=== PATIENT | male | born 1960 | race Caucasian/White ===

== ENCOUNTER 2016-07-29 02:36 | Emergency (ER) | payer OTHER ==
[2016-07-29] MEDS ORDERED: SODIUM CHLORIDE 1,000 ML IV STA ×2 (02:39→03:03)
[2016-07-29] MEDS ORDERED: HYDROmorphone HCL CARPU-JECT 1 MG/1 ML DISP.SYRIN IVPUSH ONE ×3 (02:39→04:13)
--- NOTE | 2016-07-29 02:41 | PDOC ---
History of Present Illness - General Chief Complaint: Pain, Acute Stated Complaint: CHRONIC KIDNEY STONES Time Seen by Provider: 07/29/16 02:39 - History of Present Illness Initial Comments: This 55-year-old man with a long history of renal colic, hypertension, breast cancer presents with several hour history of progressive, severe right flank pain radiating to the right groin. Patient had mild to moderate right sided pain approximately 3 weeks ago and was seen by his urologist. At that time, CT was performed. This showed a 4 mm stone in the right renal pelvis/5 mm stone in the left renal pelvis. No ureteral stones were present. Pain was not particularly severe until tonight when he had onset of acute episode. Patient denies hematuria/dysuria/urinary frequency or urgency. He has had no nausea or vomiting. Past History - Past Medical History Allergies/Adverse Reactions: Allergies Allergy/AdvReac Type Severity Reaction Status Date / Time JIGAR Inhibitors Allergy Verified 07/29/16 02:38 Home Medications: Ambulatory Orders Oxycodone HCl/Acetaminophen [Percocet 5-325 mg Tablet -] 1 tab PO Q6H PRN #12 tablet 01/25/14 Oxycodone HCl/Acetaminophen [Percocet 5/325 -] 1 tab PO Q6H PRN #10 tablet 04/09 Oxycodone HCl/Acetaminophen [Percocet 5-325 mg Tablet] 1 tab PO Q6H PRN #10 tablet MDD 3 tabs 07/29/16 Cancer: Yes (BREAST) Kidney Stones: Yes Psychiatric Problems: Yes (ANXIETY,DEPRESSION) - Immunization History Immunization Up to Date: Yes - Psycho/Social/Smoking Cessation Hx Anxiety: No Suicidal Ideation: No Smoking History: Never smoked Review of Systems - Review of Systems Able to Perform ROS?: Yes Comments:: 12 point review of systems is negative except for what is noted in the history of present illness *Physical Exam - Physical Exam Comments: GENERAL:Adult man, in moderate distress secondary to right flank pain HEAD: Normal with no signs of trauma. EYES: PERRLA, EOMI, sclera anicteric, conjunctiva clear. ENT: Ears normal, nares patent, oropharynx clear without exudates. Dry mucous membranes. NECK: Normal range of motion, supple without lymphadenopathy, JVD, or masses. LUNGS: Breath sounds equal, clear to auscultation bilaterally. No wheezes, and no crackles. HEART:Regular rate and rhythm, normal S1 and S2 without murmur, rub or gallop. ABDOMEN:.normal bowel sounds ;mild right flank tenderness; no peritoneal signs EXTREMITIES: Normal range of motion, no edema. No clubbing or cyanosis. No erythema, or tenderness. NEUROLOGICAL: Cranial nerves II through XII grossly intact. Normal speech. No focal neurological deficits. SKIN: Warm, Dry, normal turgor, no rashes or lesions noted. Medical Decision Making - Medical Decision Making 07/29/16 03:58 Patient feels much improved after second liter of normal saline and second dose of 1 mg Dilaudid IV. Patient will be discharged with instructions to drink plenty of fluids and follow-up with his urologist within the next 48 hours (he will call later on this morning to arrange follow-up appointment). Prescription for Percocet 5/ 325 (#10) will be transmitted to his pharmacy to be used up to 3 tablets a day as needed for severe pain. Meanwhile, the patient return to the emergency room if he has persistent severe pain or vomiting. Patient is concerned that he will not be able to fill prescription for Percocet until pharmacy opens at 9 AM. Percocet 5/325, 2 tablets will be dispensed to the patient for use at home until this pharmacy opens in [facility]. *DC/Admit/Observation/Transfer Diagnosis at time of Disposition: Renal colic on right side - Discharge Dispostion Condition at time of disposition: Stable - Prescriptions Prescriptions: Oxycodone HCl/Acetaminophen [Percocet 5-325 mg Tablet] 1 tab PO Q6H PRN #10 tablet MDD 3 tabs PRN Reason: Severe Pain - Patient Instructions Printed Discharge Instructions: Kidney Stones -- Adult Additional Instructions: Drink plenty of fluids Percocet 5/325 up to 3 tabs a day as needed for flank pain
[2016-07-29 03:18] VITALS: TEMP 97.9; BMI 28.5
[2016-07-29 03:28] VITALS: PULSE 62
[2016-07-29] MEDS ORDERED: OXYCODONE/APAP 5/325MG COMBO TABLET ONE (03:56)
[2016-07-29 04:29] VITALS: BP 113/66
== END 2016-07-29 04:36 | disposition home or self-care (01) ==
LOC: FER 02:36
PROC: 3E033NZ Introduction of Analgesics, Hypnotics, Sedatives into Peripheral Vein, Percutaneous Approach (ICD-10-PCS; principal; 2016-07-29)
PROC: 3E0337Z Introduction of Electrolytic and Water Balance Substance into Peripheral Vein, Percutaneous Approach (ICD-10-PCS; 2016-07-29)
DX: N23 Unspecified renal colic (principal); I10 Essential (primary) hypertension; Z85.3 Personal history of malignant neoplasm of breast; F41.8 Other specified anxiety disorders
CPT/HCPCS: 99281-25

== ENCOUNTER 2018-10-23 02:59 | Emergency (ER) | payer OTHER ==
[2018-10-23 03:04] VITALS: BP 143/98; PULSE 67; TEMP 97.7; BMI 26.4
[2018-10-23] MEDS ORDERED: HYDROmorphone HCL CARPU-JECT 1 MG/1 ML DISP.SYRIN IVPUSH ONE (03:21)
--- NOTE | 2018-10-23 03:21 | PDOC ---
History of Present Illness - General Chief Complaint: Pain Stated Complaint: RIGHT FLANK PAIN Time Seen by Provider: 10/23/18 03:21 History Source: Patient Exam Limitations: No Limitations - History of Present Illness Initial Comments: 10/23/18 03:39 This is a 57-year-old male who comes in complaining of right flank pain. Patient has history of similar symptoms multiple times in the past with multiple kidney stones. Patient last CAT scan did show multiple stones bilateral. Patient said pain is associated with some nausea and vomiting. Allergies: as per nursing notes Past Medical History: none Social history: Lives with family. No smoking. No alcohol. No illicit drugs. Surgical history: None General: No fevers or chills, no weakness, no weight loss HEENT: No change in vision. No sore throat,. No ear pain CardioVascular: no chest discomfort. No shortness of breath Respiratory:No cough, or wheezing. Gastrointestinal: no nausea, vomiting, diarrhea or constipation, No rectal bleeding, right flank pain Genitourinary: No dysuria, hematuria, or frequency Musculoskeletal: No joint or muscle pain or swelling Neurologic: No headache, vertigo, dizziness or loss of consciousness Psychiatric: nor depression Skin: No rashes or easy bruising Endocrine: no increased thirst or abnormal weight change Allergic: no skin or latex allergy All other systems reviewed and normal Exam: General: Well-nourished well-developed individual, no acute distress HEENT: Throat: Normal, tonsils normal, no erythema or exudate Neck: Supple, no meningeal signs, no lymphadenopathy Eyes::Pupils equal reactive and round, extraocular motion intact Chest: Nontender to palpation Cardiac: S1-S2 normal, regular rate and rhythm, no murmurs rubs or gallops Respiratory: Lungs clear to auscultation bilateral Abdomen: Soft, nondistended, normal bowel sounds, there is + tenderness on palpation right lower quadrant without any guarding or rebound there is also some ink and back tenderness. Extremities: Warm, dry, no cyanosis, clubbing, or edema Skin: No rashes Neuro: Alert and oriented x3, CN II - XII intact, nonfocal exam with normal strength, normal sensation, normal reflexes, normal gait, Psych: Normal mood and affect Assessment and plan: This is a 57-year-old male with right flank pain and history of renal colic in the past. Workup initiated including CBC, comp and CAT scan. Patient given IV fluids and Zofran, Toradol and Dilaudid for the pain 10/23/18 06:25 Patient feels much better CAT scan shows a small stone in the bladder. Patient discharged home will follow-up with his urologist Past History - Past Medical History Allergies/Adverse Reactions: Allergies Allergy/AdvReac Type Severity Reaction Status Date / Time JIGAR Inhibitors Allergy Verified 10/23/18 03:00 Home Medications: Ambulatory Orders Ondansetron [Zofran *Odt*] 4 mg SL BID #14 od.tablet 10/23/18 Oxycodone HCl/Acetaminophen [Percocet 5-325 mg Tablet] 2 tab PO Q4H #20 tablet MDD 8 10/23/18 Cancer: Yes (BREAST) COPD: No HTN: Yes Hypercholesterolemia: Yes Kidney Stones: Yes Psychiatric Problems: Yes (ANXIETY,DEPRESSION) - Immunization History Immunization Up to Date: Yes - Suicide/Smoking/Psychosocial Hx Smoking History: Never smoked Have you smoked in the past 12 months: No Information on smoking cessation initiated: No Hx Alcohol Use: No Drug/Substance Use Hx: No Substance Use Type: None *Physical Exam - Vital Signs Last Vital Signs Temp Pulse Resp BP Pulse Ox 97.7 F 67 18 143/98 98 10/23/18 03:00 10/23/18 03:00 10/23/18 03:00 10/23/18 03:00 10/23/18 03:00 ED Treatment Course - LABORATORY CBC & Chemistry Diagram: 10/23/18 03:45 10/23/18 03:45 *DC/Admit/Observation/Transfer Diagnosis at time of Disposition: Renal colic on right side - Discharge Dispostion Disposition: HOME Decision to Admit order: No - Prescriptions Prescriptions: Ondansetron [Zofran *Odt*] 4 mg SL BID #14 od.tablet Oxycodone HCl/Acetaminophen [Percocet 5-325 mg Tablet] 2 tab PO Q4H #20 tablet MDD 8 - Referrals - Patient Instructions Additional Instructions: For the pain take Motrin or Aleve as directed on the bottle if he needed something stronger U can take Percocet one or 2 tablets every 4-6 hours as needed. If you have nausea take Zofran 1 tablet let it dissolve under your tongue. Return to the emergency department immediately with ANY new, persistent or worsening symptoms. Continue any medications as previously prescribed by your physician. You should follow up with your primary doctor as soon as possible regarding today's emergency department visit. . Please make sure your doctor reviews the results of your emergency evaluation. Thank you for coming to the Emergency Department today for your care. It was a pleasure to see you today. Please note that your evaluation is INCOMPLETE until you follow-up with your doctor. - Post Discharge Activity
[2018-10-23] MEDS ORDERED: KETOROLAC TROMETHAMINE 30 MG/1 ML VIAL IVPUSH ONE (03:22)
[2018-10-23] MEDS ORDERED: SODIUM CHLORIDE 1,000 ML IV ONE (03:22)
[2018-10-23] MEDS ORDERED: ONDANSETRON 4 MG/2 ML VIAL IVPB ONE (03:22)
[2018-10-23] MEDS ORDERED: KETOROLAC TROMETHAMINE 30 MG/1 ML VIAL ONE (03:25)
[2018-10-23] MEDS ORDERED: HYDROmorphone HCL CARPU-JECT 1 MG/1 ML DISP.SYRIN ONE (03:25)
[2018-10-23] MEDS ORDERED: ONDANSETRON 4 MG/2 ML VIAL ONE (03:25)
[2018-10-23 04:42] LABS: BASO % 0.4 % (0-2.0); EOS % 1.8 % (0-4.5); HEMOGLOBIN 14.9 GM/dL (11.7-16.9); MCH 31.5 pg (25.7-33.7); MCHC 33.8 g/dl (32.0-35.9); MEAN CELL VOLUME 93.2 fl (80-96); MEAN PLT VOLUME 9.9 fl (7.5-11.1); MONO % 10.6 % (3.8-10.2); NEUT % 54.2 % (42.8-82.8); PLATELET COUNT 267 K/MM3 (134-434); RBC 4.72 M/mm3 (4.00-5.60); RDW 13.2 % (11.9-15.9); WHITE BLOOD COUNT 9.3 K/mm3 (4.0-10.0)
[2018-10-23 05:00] LABS: ALBUMIN 3.7 g/dl (3.4-5.0); BILIRUBIN,TOTAL 0.4 mg/dL (0.2-1); BLOOD UREA NITROGEN 18.9 mg/dL (7-18); CALCIUM 8.6 mg/dL (8.5-10.1); CREATININE 1.2 mg/dL (0.55-1.3); POTASSIUM 3.9 mmol/L (3.5-5.1); TOT PROT 6.8 g/dl (6.4-8.2)
[2018-10-23 05:07] LABS: PH,URINE 7.5 (5.0-8.0); URINE APPEARANCE CLEAR; URINE BILIRUBIN NEGATIVE (NEGATIVE); URINE COLOR YELLOW; URINE GLUCOSE (UA) NEGATIVE (NEGATIVE); URINE KETONE NEGATIVE (NEGATIVE); URINE NITRITE NEGATIVE (NEGATIVE); URINE PROTEIN NEGATIVE (NEGATIVE); URINE UROBILINOGEN 0.2 mg/dL (0.2-1.0)
[2018-10-23 05:08] LABS: EPI CELLS 1.2 /HPF (0-5/HPF); HYALINE CASTS 2.23 /lpf (0-8); URINE BACTERIA 3.5 /hpf (NEGATIVE); URINE LEUK ESTERASE TRACE (NEGATIVE); URINE RBC 2.2 /hpf (0-4); URINE WBC 5.3 /hpf (0-5)
== END 2018-10-23 06:28 | disposition home or self-care (01) ==
LOC: FER 02:59
DX: N20.0 Calculus of kidney (principal); F41.8 Other specified anxiety disorders; I10 Essential (primary) hypertension; E78.00 Pure hypercholesterolemia, unspecified; Z85.3 Personal history of malignant neoplasm of breast
CPT/HCPCS: 36415; 74176-TC; 80053; 81003; 85025; 99284-25; J7030

== ENCOUNTER 2020-11-14 12:45 | Emergency (ER) | payer OTHER ==
[2020-11-14 13:52] VITALS: BP 126/76; PULSE 68; TEMP 98.7; BMI 27.1
[2020-11-14] MEDS ORDERED: SODIUM CHLORIDE 500 ML IV STA (13:53)
[2020-11-14] MEDS ORDERED: KETOROLAC TROMETHAMINE 30 MG/1 ML VIAL IVPUSH ONE (13:53)
[2020-11-14] MEDS ORDERED: KETOROLAC TROMETHAMINE 30 MG/1 ML VIAL ONE (14:39)
[2020-11-14 15:01] LABS: BASO % 3.4 % (0-2.0); EOS % 0.4 % (0-4.5); HEMATOCRIT 40.1 % (35.4-49); HEMOGLOBIN 14.1 GM/dl (11.7-16.9); MCH 33.1 pg (25.7-33.7); MCHC 35.2 g/dl (32.0-35.9); MEAN CELL VOLUME 94.2 fl (80-96); MEAN PLT VOLUME 8.6 fl (7.5-11.1); MONO % 8.2 % (3.8-10.2); PLATELET COUNT 319 10^3/uL (134-434); RBC 4.26 M/mm3 (4.00-5.60); RDW 12.5 % (11.9-15.9); WHITE BLOOD COUNT 11.4 K/mm3 (4.0-10.8)
[2020-11-14 15:09] LABS: BILIRUBIN,TOTAL 1.1 mg/dl (0.2-1); CALCIUM 8.9 mg/dl (8.5-10); CREATININE 1.2 mg/dl (0.55-1.3); TOT PROT 6.7 g/dl (6.4-8.2)
== END 2020-11-14 15:53 | disposition home or self-care (01) ==
LOC: FER 12:45
PROC: 3E0333Z Introduction of Anti-inflammatory into Peripheral Vein, Percutaneous Approach (ICD-10-PCS; principal; 2020-11-14)
PROC: 3E0337Z Introduction of Electrolytic and Water Balance Substance into Peripheral Vein, Percutaneous Approach (ICD-10-PCS; 2020-11-14)
DX: S20.211A Contusion of right front wall of thorax, initial encounter (principal); W01.0XXA Fall on same level from slipping, tripping and stumbling without subsequent striking against object, initial encounter; Y93.K1 Activity, walking an animal
CPT/HCPCS: 36415; 71101-TC-RT-FY; 80053; 85025; 99284-25

== ENCOUNTER 2021-08-03 18:03 | Emergency (ER) | payer OTHER, MEDICARE ==
[2021-08-03 18:13] VITALS: BP 149/83; PULSE 83; TEMP 99; BMI 27.6
[2021-08-03] MEDS ORDERED: IBUPROFEN 400 MG TABLET (FP) PO ONE ×2 (18:48→18:51)
== END 2021-08-03 19:29 | disposition home or self-care (01) ==
LOC: FER 18:03
DX: M25.572 Pain in left ankle and joints of left foot (principal)
CPT/HCPCS: 73610-TC-LT-FY; 73630-TC-LT; 99283-25